=== PATIENT | female | born 1945 | race Two or more races ===

== ENCOUNTER 2025-02-03 10:18 | Emergency (ER) | payer OTHER ==
[~2025-02-03] VITALS: Ht 152.4 cm; Wt 63.5 kg
[2025-02-03] MEDS ORDERED: LOSARTAN POTASS50 MG (10:38)
[2025-02-03] MEDS ORDERED: LORAZEPAM1 MG PO (10:39)
[2025-02-03] MEDS ORDERED: LORAZEPAM0.5 MG (10:39)
[2025-02-03] MEDS ORDERED: SIMVASTATIN40 MG (10:39)
[2025-02-03] MEDS ORDERED: LEVO-T25 MCG (10:39)
[2025-02-03] MEDS ORDERED: METOPROLOL TART50 MG PO (10:39)
[2025-02-03] MEDS ORDERED: MIRTAZAPINE7.5 MG (10:39)
[2025-02-03] MEDS ORDERED: ROSUVASTATIN CA10 MG PO (10:40)
[2025-02-03 11:45] LABS: BASO % 0.8 % (0.1-1.2); EOS # 0.59 (0.04-0.54); EOS % 7.4 % (0.7-7.0); LYMPH # 1.61 (1.18-3.74); LYMPH % 20.2 % (19.3-53.1); MEAN PLATELET VOLUME 10.30 fl (9.4-12.4); MONO # 0.71 (0.24-0.82); MONO % 8.9 % (4.7-12.5); NEUT # 4.98 (1.56-6.13); NEUT % 62.4 % (34.0-71.1); RED CELL DISTRIBUTION WIDTH 18.1 % (11.6-14.4)
[2025-02-03 12:23] LABS: COVID-19 AG NEGATIVE (NEGATIVE)
[2025-02-03 12:40] LABS: ALT/SGPT 14.0 U/L (12-78); AST/SGOT 20.0 U/L (15-37); BILIRUBIN TOTAL 0.21 mg/dL (0.3-1.2); BUN CREA RATIO 35.0 (7.0-25.0); CREATININE SERUM 0.85 mg/dL (0.55-1.02); GFR 64.19; GLOBULINA 4.3 G/DL (2.4-3.5); GLUCOSE FASTING 95.0 mg/dL (65-100); OSMOLALITY SERUM 295.0 MOSM/KG (275-295)
[2025-02-03 14:51] LABS: URINE APPEARANCE Clear; URINE BILIRRUBIN Negative (NEGATIVE); URINE BLOOD Trace; URINE COLOR Yellow; URINE KETONE Negative (NEGATIVE); URINE LEUKOCYTE Moderate; URINE NITRATE Negative; URINE PROTEIN Trace (NEGATIVE); URINE UROBILINOGEN 0.2 E.U./dl
[2025-02-03 14:55] LABS: URINE BACTERIA 772.6 uL (0.0-1933); URINE EPITHELIAL CELLS 53.8 uL (0.0-38.8); URINE RBC 10.4 uL (0.0-20.8); URINE WBC 222.7 uL (0.0-23.2)
[2025-02-03 15:26] LABS: URINE CAST 1.02 uL (0.0-1.40); URINE GLUCOSE 500 MG/DL (NEGATIVE)
[2025-02-03] MEDS ORDERED: AZITHROMYCIN 500 MG TABLET PO ONE (16:15)
== END 2025-02-03 18:19 | disposition home or self-care (01) ==
LOC: ER 10:18
PROVIDERS: Emergency Medicine
DX: I95.9 Hypotension, unspecified (principal); R55 Syncope and collapse; I10 Essential (primary) hypertension; Z20.822 Contact with and (suspected) exposure to COVID-19; Z88.6 Allergy status to analgesic agent; Z88.0 Allergy status to penicillin